=== PATIENT | male | born 1960 | race Caucasian/White ===

== ENCOUNTER → 2019-01-11 | Outpatient (RCR) | payer OTHER | LOC: PT 01-04 08:07 | PROVIDERS: ATTEND Orthopaedic Surgery | DX: S86.091A Other specified injury of right Achilles tendon, initial encounter (principal) ==

== ENCOUNTER 2019-02-08 14:00 | Outpatient (RCR) | payer OTHER | END 2019-02-10 | LOC: PT 14:00 | PROVIDERS: ATTEND Orthopaedic Surgery | DX: S86.091A Other specified injury of right Achilles tendon, initial encounter (principal) ==

== ENCOUNTER 2019-03-11 10:00 | Outpatient (RCR) | payer OTHER | END 2019-03-13 | LOC: PT 10:00 | PROVIDERS: ATTEND Orthopaedic Surgery | DX: S86.011D Strain of right Achilles tendon, subsequent encounter (principal); M25.571 Pain in right ankle and joints of right foot; M25.671 Stiffness of right ankle, not elsewhere classified; M62.81 Muscle weakness (generalized); R26.2 Difficulty in walking, not elsewhere classified ==

== ENCOUNTER 2019-03-25 09:00 | Outpatient (RCR) | payer OTHER | END 2019-04-13 | LOC: PT 09:00 | PROVIDERS: ATTEND Orthopaedic Surgery | DX: S86.011A Strain of right Achilles tendon, initial encounter (principal); S86.091A Other specified injury of right Achilles tendon, initial encounter | CPT/HCPCS: 97139 ==

== ENCOUNTER → 2019-07-13 | Day surgery (SDC) | payer OTHER ==
[~2019-07-13] MED LIST: COQ-10100 MG PO; FISH OIL 1,0001 EAC2 PO; FLAX SEED OIL1000 MG PO; HYOSCYAMINE 0.125 MG TAB ONE; LIDOCAINE HCL 2% LOCAL INJ 5 ML SDV VIAL INJ ONE; MIDAZOLAM HCL 2 MG/2 ML VIAL ONE; PROPOFOL IV EMULSION 10 MG/ML 50 ML VIAL ONE; VITAMIN C500 M1 PO
--- NOTE | 2019-07-13 15:20 | Operative Report ---
DATE OF PROCEDURE: 07/13/2019 SURGEON: Thomas Dalton MD PROCEDURE PERFORMED: Colonoscopy with polypectomy INDICATIONS FOR COLONOSCOPY: Colorectal cancer screening. MEDICATIONS: The patient was done under MAC. Please see anesthesiologist's note. PROCEDURE IN DETAIL: With the patient in left lateral decubitus position, a flexible fiberoptic Olympus colonoscope was inserted into the rectum with ease and advanced all the way to the cecum. The scope was then withdrawn slowly. Mucosa overlying the cecum appeared to be within normal limits. Two polyps were removed per the cold biopsy forceps from the ascending colon. One polyp was hot snared, one polyp was cold biopsied from the transverse colon. One polyp was removed per the cold biopsy forceps from the descending colon. Diverticular disease was noted to involve the sigmoid colon. The rectum appeared to be within normal limits. The scope was then retroflexed into the distal rectum and small internal hemorrhoids were noted, none of which was actively bleeding. The scope was then straightened out. It was subsequently withdrawn. The patient tolerated the procedure well. IMPRESSION: 1. Ascending colon polyps x2, removed per cold biopsy forceps. 2. Transverse colon polyps x2, one hot snared and one cold biopsied. 3. Descending colon polyp removed per cold biopsy forceps. 4. Diverticulosis. 5. Internal hemorrhoids, none actively bleeding. PLAN: Follow up histology. Initiate high-fiber, low-fat diet. Initiate high-fiber supplement. The patient might benefit from a followup colonoscopy in 3 years. Thomas Dalton MD [facility] [place] /[id number] cc: Wesley Ash MD
== END | disposition home or self-care (01) ==
LOC: OR 11:50
PROVIDERS: ATTEND Internal Medicine Gastroenterology
DX: Z12.11 Encounter for screening for malignant neoplasm of colon (principal); K63.5 Polyp of colon; K57.30 Diverticulosis of large intestine without perforation or abscess without bleeding; K64.8 Other hemorrhoids; Z01.810 Encounter for preprocedural cardiovascular examination; R03.0 Elevated blood-pressure reading, without diagnosis of hypertension; Z68.42 Body mass index [BMI] 45.0-49.9, adult; Z82.49 Family history of ischemic heart disease and other diseases of the circulatory system; D12.3 Benign neoplasm of transverse colon
CPT/HCPCS: 45380; 45384; 93005; J2001; J2250; J2704; 45378; 45385

== ENCOUNTER → 2024-10-26 | Day surgery (SDC) | payer MEDICARE, OTHER ==
[2024-10-22 12:32] LABS: BASOPHILS # (AUTO) 0.1 (0.0-0.1); BASOPHILS % 0.7 % (0.0-1.0); EOSINOPHILS # (AUTO) 0.1 (0.0-0.4); HEMATOCRIT 44.7 % (38.2-49.6); HEMOGLOBIN 14.6 g/dL (14.0-18.0); LYMPHOCYTES # (AUTO) 2.6 (1.0-3.2); LYMPHOCYTES % 37.3 % (18.0-39.1); MEAN CORPUSCULAR HEMOGLOBIN 28.2 pg (28-32); MEAN CORPUSCULAR HGB CONC 32.7 g/dL (31-35); MEAN CORPUSCULAR VOLUME 86.5 fL (81-99); MONOCYTES # (AUTO) 0.5 (0.2-0.8); MONOCYTES % 7.4 % (4.4-11.3); NEUTROPHILS # (AUTO) 3.7 (2.1-6.9); NEUTROPHILS % 52.5 % (38.7-80.0); PLATELET COUNT 228 x10e3/uL (140-360); RED BLOOD COUNT 5.17 x10e6/uL (4.3-5.7); WHITE BLOOD COUNT 6.99 x10e3/uL (4.8-10.8)
[~2024-10-26] MED LIST changes: +FENTANYL CITRATE/PF 100MCG/2 ML INJ ONE; +GLUCAGON FOR INJ 1 MG VIAL ONE; -HYOSCYAMINE 0.125 MG TAB ONE; +HYOSCYAMINE SULFATE 0.5 MG/ML INJ ONE; +PROPOFOL IV EMULSION 10 MG/ML 20 ML VIAL ONE; -PROPOFOL IV EMULSION 10 MG/ML 50 ML VIAL ONE
[2024-10-26] MEDS: LACTATED RINGER'S 1,000 ML BAG IV ONE (09:30)
[2024-10-26 11:35] VITALS: BP 118/68; PULSE 67; RESP 16; TEMP 97.5; O2SAT 96
== END | disposition home or self-care (01) ==
LOC: OR 08:54
PROVIDERS: ATTEND Internal Medicine Gastroenterology
DX: Z09 Encounter for follow-up examination after completed treatment for conditions other than malignant neoplasm (principal); K63.5 Polyp of colon; K57.30 Diverticulosis of large intestine without perforation or abscess without bleeding; K64.8 Other hemorrhoids; Z71.3 Dietary counseling and surveillance; E73.9 Lactose intolerance, unspecified; Z71.89 Other specified counseling; Z01.810 Encounter for preprocedural cardiovascular examination; Z01.812 Encounter for preprocedural laboratory examination; Z68.31 Body mass index [BMI] 31.0-31.9, adult
CPT/HCPCS: 36415; 45385; 85025; 88305; 93005; J1610; J1980; J2003; J2250; J2704; J3010; J7121